=== PATIENT | male | born 1990 | race Caucasian/White ===

== ENCOUNTER 2025-01-11 04:37 | Emergency (ER) | payer BC ==
[~2025-01-11] VITALS: Ht 160 cm; Wt 73.1 kg
[2025-01-11] MEDS: ONDANSETRON 4MG/2ML VIAL IV ONE (07:18)
[2025-01-11] MEDS: MORPHINE 4 MG/ML 1 ML VIAL IV ONE (07:18)
[2025-01-11] MEDS: ceFAZolin SOD 2 GM in DEXTROSE 5% (D5W) ADV/MINI-BAG 50 ML IV ONE (08:15)
[2025-01-11] MEDS: OMEPRAZOLE 20MG CAP PO ONE (09:24)
[2025-01-11 09:29] VITALS: BP 133/72; TEMP 98; O2SAT 98
== END 2025-01-11 09:34 | disposition short-term general hospital (02) ==
LOC: M ED 08:09
DX: S61.214A Laceration without foreign body of right ring finger without damage to nail, initial encounter (principal); S61.216A Laceration without foreign body of right little finger without damage to nail, initial encounter; S66.891A Other injury of other specified muscles, fascia and tendons at wrist and hand level, right hand, initial encounter; S64.91XA Injury of unspecified nerve at wrist and hand level of right arm, initial encounter; Y92.9 Unspecified place or not applicable; Y93.9 Activity, unspecified; Y99.9 Unspecified external cause status; W26.0XXA Contact with knife, initial encounter; I10 Essential (primary) hypertension; F10.10 Alcohol abuse, uncomplicated; Z88.2 Allergy status to sulfonamides
CPT/HCPCS: 29125; 73130; 96365; 96375; 99285; J0690; J2405